=== PATIENT | male | born 2000 | race Caucasian/White ===

== ENCOUNTER 2025-05-23 16:46 | Emergency (ER) | payer BC, OTHER ==
[2025-05-23] MEDS: methylPREDNISolone Sodium Succinate 125 MG/2 ML SDV IVPUSH ONE (17:26)
[2025-05-23] MEDS: Magnesium Sulfate 2 GM/50 mL 2 GM in Premix Bag 1 BAG IV ONE (17:26)
[2025-05-23 17:38] LABS: BASOPHILS ABSOLUTE AUTO 0.05 K/uL (0.00-0.20); BASOPHILS PERCENT AUTO 0.5 % (0.0-1.0); EOSINOPHILS ABSOLUTE AUTO 1.41 K/uL (0.00-0.45); EOSINOPHILS PERCENT AUTO 13.6 % (0.0-6.0); IMMATURE GRAN ABSOLUTE AUTO 0.02 K/uL (0.00-0.05); IMMATURE GRAN PERCENT AUTO 0.2 % (0.0-0.4); LYMPHOCYTES ABSOLUTE AUTO 2.77 K/uL (1.00-4.80); LYMPHOCYTES PERCENT AUTO 26.7 % (24.0-44.0); MEAN PLATELET VOLUME 10.7 fL (9.4-12.4); MONOCYTES ABSOLUTE AUTO 0.96 K/uL (0.00-0.80); MONOCYTES PERCENT AUTO 9.3 % (0.0-8.0); NEUTROPHILS ABSOLUTE AUTO 5.15 K/uL (1.80-7.70); NEUTROPHILS PERCENT AUTO 49.7 % (41.0-71.0); NRBC ABSOLUTE 0.00 K/uL (0.00-0.02); NRBC PERCENT 0.0 /100WBC (0.0-0.2); PLATELET COUNT,PLT 333 K/uL (150-400); RED BLOOD CELL COUNT 5.75 M/uL (4.52-5.90); WHITE BLOOD CELL COUNT,WBC 10.36 K/uL (3.9-11.3)
[2025-05-23 18:00] LABS: A/G RATIO 1.3 (0.9-1.6); ALANINE AMINOTRANSFERASE,ALT 29 IU/L (14-63); ASPARTATE AMNIOTRANSFERASE,AST 15 IU/L (15-37); BILIRUBIN TOTAL 0.7 mg/dL (0.2-1.0); BLOOD UREA NITROGEN,BUN 6 mg/dL (7.0-18.0); CARBON DIOXIDE,CO2 28.0 mmol/L (21.0-32.0); CHLORIDE,CL 104 mmol/L (98-107); CREATININE 0.9 mg/dL (0.8-1.3); GLUCOSE RANDOM 136 mg/dL (74-106); POTASSIUM,K 3.1 mmol/L (3.5-5.1); PROTEIN TOTAL,TP 7.4 g/dL (6.4-8.2); SODIUM,NA 141 mmol/L (136-148)
[2025-05-23 18:02] LABS: ESTIMATED GFR 122 mL/min (>60)
[2025-05-23] MEDS: Potassium Chloride 20 MEQ Tab.ER PO ONE (19:46)
== END 2025-05-23 19:51 | disposition home or self-care (01) ==
LOC: MW.ED 16:46
DX: J45.901 Unspecified asthma with (acute) exacerbation (principal); Z91.048 Other nonmedicinal substance allergy status; Z91.012 Allergy to eggs; Z91.018 Allergy to other foods; Z79.899 Other long term (current) drug therapy
CPT/HCPCS: 36415; 71046; 80053; 83735; 85025; 94640; 96361; 96365; 96375; 99285; A9270; J2919; J3475; J7030; J7620; 99283